=== PATIENT | female | born 1950 | race Caucasian/White ===

== ENCOUNTER → 2019-04-08 14:33 | Outpatient (CLI) | payer MEDICARE, OTHER, SELFPAY ==
--- NOTE | 2019-04-08 14:35 | CA_ITS ---
APPROVED REPORT Bilateral Lower Extremity Venous Study for Grill Attendant: CT Indications swelling, pain Vein Imaging CFV (L): Thrombus, Non-Compressible SFJ (L): Thrombus, Non-Compressible FEM (L): Thrombus, Non-Compressible POP (L): Thrombus, Non-Compressible DFV (L): Thrombus, Non-Compressible PTV (L): Thrombus, Non-Compressible GSV (L): Thrombus, Non-Compressible SSV (L): Thrombus, Non-Compressible Peroneals (L):Thrombus, Non-Compressible GAS (L): Thrombus, Non-Compressible Findings The right Common Femoral, Femoral, Popliteal, Posterior Tibial, Peroneal Veins are dilated with mixed echoes and are non-compressible. Color flow duplex of the right lower extremity demonstrates DVT involving the following Veins:Common Femoral, Femoral, Popliteal, Posterior Tibial, Peroneal. Conclusion DVT involving the following Veins:Common Femoral, Femoral, Popliteal, Posterior Tibial, Peroneal. Critical Notification Critical Value: Yes Physician Notified Date: 04/08/2019 Time: 15:30 Physician Name: Benita Bashir Report Read Back Electronically signed by : Abraham Estevez MD 04/08/2019 17:57:11
[2019-04-08 16:13] LABS: Basophils # 0.1 K/mm3 (0-0.2); Basophils % 0.6 % (0.1-2.0); Eosinophils # 0.1 K/mm3 (0.0-0.4); Eosinophils % 1.6 % (0.1-12.0); Hematocrit 39.2 % (37.0-47.0); Hemoglobin 12.7 g/dL (12.2-16.2); Lymphocytes # 2.1 K/mm3 (0.7-4.5); Lymphocytes % 23.6 % (10-50); Mean Corpuscular HGB Conc 32.4 g/dL (31.8-35.4); Mean Corpuscular Hemoglobin 29.4 pg (27.0-31.2); Mean Corpuscular Volume 90.7 fl (81-99); Monocytes # 0.6 K/mm3 (0.1-1.0); Monocytes % 6.9 % (1.7-9.3); Neutrophils # 5.9 K/mm3 (1.8-7.8); Neutrophils % 67.4 % (37.0-80.0); Platelet Count 219 K/mm3 (142-424); Red Blood Count 4.32 M/mm3 (4.20-5.40); Red Cell Distribution Width 13.4 % (11.5-17.5); White Blood Count 8.8 K/mm3 (4.8-10.8)
[2019-04-08 17:34] LABS: Alanine Aminotransferase 22 U/L (12-78); Albumin Level 4.2 gm/dL (3.4-5.0); Albumin/Globulin Ratio 1.1 (1.1-1.8); Alkaline Phosphatase 113 U/L (46-116); Anion Gap 14.7 mEq/L (5-15); Aspartate Amino Transferase 24 U/L (15-37); Bilirubin,Total 0.5 mg/dL (0.2-1.0); Blood Urea Nitrogen 13 mg/dL (7-18); Calcium 9.7 mg/dL (8.5-10.1); Carbon Dioxide 27 mmol/L (21.0-32.0); Chloride 100 mmol/L (98-107); Creatinine,Serum 0.65 mg/dL (0.55-1.02); Estimated Glomerular Filt Rate 90 ml/min (>60); Free T4 (Free Thyroxine) 0.82 ng/dl (0.76-1.46); GFR (African American) 109 ML/MIN (>60); Globulin 3.8 gm/dl (1.3-3.2); Glucose 84 mg/dL (74-106); Potassium 4.7 mmoL/L (3.5-5.1); Sodium 137 mmol/L (136-145); Thyroid Stimulating Hormone 1.81 uIU/ml (0.358-3.740)
[2019-04-12 18:07] LABS: Vitamin D 25 Hydroxy 28
== END ==
PROVIDERS: PCP Nurse Practitioner Family; Visit Provider Nurse Practitioner Family
DX: M79.662 Pain in left lower leg (principal); R60.9 Edema, unspecified; Z86.718 Personal history of other venous thrombosis and embolism
CPT/HCPCS: 36415; 80053; 82652; 84439; 84443; 85025; 93971

== ENCOUNTER → 2019-04-08 15:39 | Outpatient (CLI) | payer MEDICARE, OTHER, SELFPAY | PROVIDERS: Visit Provider Nurse Practitioner Family | DX: M79.662 Pain in left lower leg (principal); Z86.718 Personal history of other venous thrombosis and embolism; R60.9 Edema, unspecified | CPT/HCPCS: 36415; 80053; 82652; 84439; 84443; 85025; 93971 ==

== ENCOUNTER → 2019-09-05 11:22 | Outpatient (CLI) | payer MEDICARE, OTHER, SELFPAY ==
[2019-09-05 12:59] LABS: D-Dimer 501 ng/mL (0-400)
== END ==
PROVIDERS: Visit Provider Internal Medicine Hematology & Oncology
DX: D68.59 Other primary thrombophilia (principal)
CPT/HCPCS: 36415; 85378

== ENCOUNTER → 2019-11-21 08:34 | Outpatient (CLI) | payer MEDICARE, OTHER, SELFPAY ==
--- NOTE | 2019-11-21 08:36 | MM_ITS ---
PROCEDURE: MM DIG SCREENING MAMM BI W/CAD Digital Breast Tomosynthesis Included CLINICAL INDICATION: screening COMPARISON: [facility] DIG MAMM-SCREEN TRUMAN from 02/21/2014 [facility] DIG MAMM-SCREEN TRUMAN from 03/04/2015 [facility] DIG MAMM-SCREEN TRUMAN W/CAD from 06/30/2016 TECHNIQUE: Standard CC and MLO images and 3D Tomosynthesis was obtained. R2 CAD reviewed. FINDINGS: Average fibroglandular tissue. No malignant appearing mass or malignant-appearing microcalcification significant change IMPRESSION: BI-RAD Category: 1 Negative FOLLOW-UP: 1YR 1 Year Follow-up (A letter has been sent to the patient regarding results of the study.) Dictated by: Abraham Estevez MD 11/22/2019 14:01 Electronically signed by Abraham Estevez MD in [place] 11/22/2019 14:01
== END ==
PROVIDERS: PCP Emergency Medicine; Visit Provider Emergency Medicine
DX: Z12.31 Encounter for screening mammogram for malignant neoplasm of breast (principal)
CPT/HCPCS: 77063; 77067

== ENCOUNTER → 2020-05-28 11:15 | Outpatient (CLI) | payer MEDICARE, OTHER, SELFPAY ==
--- NOTE | 2020-05-28 11:18 | XR_ITS ---
PROCEDURE: XR RIBS LT 2V CLINICAL INDICATION: pain Left lower rib pain COMPARISON: No exams were available for comparison FINDINGS: Multiple views of the left ribs show no obvious fracture. No lytic or blastic change. Consider follow-up in 7-[address] with 3D reformats if pain persists Frontal view of the chest shows minimal atelectatic or fibrotic changes are present in the left lower lung zone. IMPRESSION: Minimal atelectatic or fibrotic change left lower lung zone otherwise negative left ribs Dictated by: Abraham Estevez MD 05/28/2020 17:24 Abraham Estevez MD in [facility] 05/28/2020 17:24
== END ==
PROVIDERS: PCP Emergency Medicine; Visit Provider Nurse Practitioner Family
DX: R07.81 Pleurodynia (principal)
CPT/HCPCS: 71100

== ENCOUNTER → 2021-03-15 08:00 | Outpatient (CLI) | payer MEDICARE, OTHER, SELFPAY | PROVIDERS: Visit Provider Nurse Practitioner Family | DX: Z12.11 Encounter for screening for malignant neoplasm of colon (principal) ==

== ENCOUNTER 2023-06-14 13:08 | Outpatient (CLI) | payer MEDICARE, OTHER, SELFPAY ==
[2023-06-14 13:52] LABS: Basophils % 0.4 % (0.1-2.0); Eosinophils # 0.1 K/mm3 (0.0-0.4); Eosinophils % 1.8 % (0.1-12.0); Hematocrit 38.1 % (37.0-47.0); Hemoglobin 12.9 g/dL (12.2-16.2); Lymphocytes # 2.2 K/mm3 (0.7-4.5); Lymphocytes % 30.9 % (10-50); Mean Corpuscular HGB Conc 33.8 g/dL (31.8-35.4); Mean Corpuscular Hemoglobin 30.4 pg (27.0-31.2); Mean Corpuscular Volume 89.9 fl (81-99); Mean Platelet Volume 7.3 fl (7.4-10.4); Monocytes # 0.5 K/mm3 (0.1-1.0); Monocytes % 7.1 % (1.7-9.3); Neutrophils # 4.2 K/mm3 (1.8-7.8); Neutrophils % 59.9 % (37.0-80.0); Platelet Count 259 K/mm3 (142-424); Red Blood Count 4.24 M/mm3 (4.20-5.40); Red Cell Distribution Width 13.7 % (11.5-17.5)
[2023-06-14 14:04] LABS: Chloride 102 mmol/L (98-107); Potassium 4.2 mmoL/L (3.5-5.1); Sodium 138 mmol/L (136-145)
[2023-06-14 14:06] LABS: Alanine Aminotransferase 28 U/L (12-78); Anion Gap 12.2 mEq/L (5-15); Aspartate Amino Transferase 38 U/L (14-36); Blood Urea Nitrogen 12 mg/dl (7-17); Carbon Dioxide 28 mmol/L (22.0-30.0); Estimated Glomerular Filt Rate 98 ml/min (>60); GFR (African American) 119 ML/MIN (>60)
[2023-06-14 14:07] LABS: Albumin Level 4.2 g/dl (3.5-5.0); Albumin/Globulin Ratio 1.4 (1.1-1.8); Alkaline Phosphatase 130 U/L (38-126); Bilirubin,Total 0.4 mg/dl (0.2-1.3); Calcium 9.7 mg/dl (8.4-10.2); Cholesterol 237 mg/dl (140-200); Glucose 89 mg/dl (74-100); HDL Cholesterol 47 mg/dl (40-60); Total Protein,Serum 7.2 g/dl (6.3-8.2); Triglycerides 310 mg/dl (30-150); VLDL Cholesterol 62 mg/dL (0-40)
[2023-06-14 14:18] LABS: Direct LDL Cholesterol 82.49 mg/dL (100-129)
[2023-06-14 14:27] LABS: 25-OH Vitamin D, Total 16.3 ng/mL (30-100)
[2023-06-14 14:39] LABS: Thyroid Stimulating Hormone 1.99 uIU/mL (0.465-4.68)
== END 2023-06-14 23:59 ==
LOC: LAB.DROPOF 13:08
PROVIDERS: PCP Internal Medicine; Visit Provider Internal Medicine
DX: K59.00 Constipation, unspecified (principal); R53.83 Other fatigue; E03.9 Hypothyroidism, unspecified; E55.9 Vitamin D deficiency, unspecified
CPT/HCPCS: 80053; 80061; 82306; 84443; 85025

== ENCOUNTER 2023-06-28 16:30 | Outpatient (CLI) | payer MEDICARE, OTHER, SELFPAY ==
--- NOTE | 2023-06-28 16:31 | MM_ITS ---
PROCEDURE INFORMATION: Exam: MG Bilateral Screening 3D Mammography Exam date and time: 06/28/2023 4:18 PM Age: 72 years old Clinical indication: Screening examination TECHNIQUE: Imaging protocol: Bilateral Screening tomosynthesis and 2D mammography including computer-aided detection (CAD) when performed. COMPARISON: 1. MG MM DIG SCREENING MAMM BI W/CAD 11/21/2019 8:55 AM 2. MG [facility] DIG MAMM-SCREEN TRUMAN W/CAD 06/30/2016 10:56 AM FINDINGS: MAMMOGRAPHY: Breast composition: There are scattered areas of fibroglandular density. Mass: None. Architectural distortion: None. Calcifications: No suspicious calcifications. Asymmetric density: None. Skin thickening: None. Axillary adenopathy: None. IMPRESSION: No mammographic evidence of malignancy. Annual screening is recommended unless otherwise clinically indicated. ASSESSMENT: BI-RADS Category 1: Negative
== END 2023-06-28 23:59 ==
LOC: RAD 16:31
PROVIDERS: PCP Internal Medicine; Visit Provider Internal Medicine
DX: Z12.31 Encounter for screening mammogram for malignant neoplasm of breast (principal)
CPT/HCPCS: 77063; 77067